=== PATIENT | female | born 1965 | race Caucasian/White ===

== ENCOUNTER 2018-04-09 12:14 | Emergency (ER) | payer OTHER ==
[2018-04-09] MEDS ORDERED: Ketorolac Tromethamine 30 MG/ML VIAL ONE (13:15)
== END 2018-04-09 14:07 | disposition home or self-care (01) ==
LOC: ERS 12:14
DX: J18.9 Pneumonia, unspecified organism (principal); B02.9 Zoster without complications; F17.210 Nicotine dependence, cigarettes, uncomplicated
CPT/HCPCS: 99284; J1885

== ENCOUNTER 2020-08-13 13:11 | Outpatient (CLI) | payer OTHER | END 2020-08-13 13:12 | disposition home or self-care (01) | LOC: TBSIIMAG 13:11 | PROVIDERS: ATTEND Surgery | DX: M54.2 Cervicalgia (principal); M25.519 Pain in unspecified shoulder; M47.812 Spondylosis without myelopathy or radiculopathy, cervical region; M50.322 Other cervical disc degeneration at C5-C6 level | CPT/HCPCS: 72052; 72141 ==

== ENCOUNTER 2023-01-05 08:46 | Outpatient (CLI) | payer OTHER | END 2023-01-05 08:47 | disposition home or self-care (01) | LOC: BICMRI 08:46 | PROVIDERS: ATTEND Neurological Surgery | DX: M47.12 Other spondylosis with myelopathy, cervical region (principal); M47.811 Spondylosis without myelopathy or radiculopathy, occipito-atlanto-axial region; M48.02 Spinal stenosis, cervical region; M50.01 Cervical disc disorder with myelopathy, high cervical region; M25.78 Osteophyte, vertebrae; M50.021 Cervical disc disorder at C4-C5 level with myelopathy; M50.022 Cervical disc disorder at C5-C6 level with myelopathy; M50.023 Cervical disc disorder at C6-C7 level with myelopathy; M47.813 Spondylosis without myelopathy or radiculopathy, cervicothoracic region | CPT/HCPCS: 72050; 72141 ==

== ENCOUNTER 2024-12-19 18:50 | Inpatient (IN) | payer OTHER ==
[~2024-12-19 18:50] MED LIST: Iopamidol 370 76% 100 ML VIAL ONE
[2024-12-19 20:00] LABS: #Basophils Less than 0.03 10x3/uL (0.0-0.2); #Eosinophils Less than 0.03 10x3/uL (0.0-0.7); #Monocytes 1.09 10x3/uL (0.11-0.59); #Neutrophils 13.78 10x3/uL (1.40-6.50); %Basophils 0.1 % (0.0-1.0); %Eosinophils 0.0 % (0.0-10.0); %Lymphocytes 3.4 % (21.0-51.0); %Monocytes 7.0 % (0.0-10.0); %Neutrophils 88.7 % (42.0-75.0); Hematocrit 37.2 % (36.0-47.0); Hemoglobin 11.8 g/dL (12.0-16.0); Mean Corpuscular Hemoglobin 26.9 pg (27.0-31.0); Mean Corpuscular Volume 84.9 fL (78.0-98.0); Platelet Count 307 10x3/uL (130-400); Red Blood Cell (RBC) Count 4.38 mill/uL (4.20-5.40); White Blood Cell (WBC) Count 15.54 10x3/uL (4.8-10.8)
[2024-12-19 20:23] LABS: ALT (SGPT) 225 U/L (Less than 34); AST (SGOT) 279 U/L (11-34); Albumin 2.9 g/dL (3.1-4.5); Alkaline Phosphatase 502 U/L (40-110); Anion Gap 13 mmol/L (10-20); BUN (Urea Nitrogen) 29 mg/dL (9.8-20.1); Bilirubin, Total 2.0 mg/dL (0.3-1.2); Calc. Creatinine Clearance 0 mL/min (70-130); Calcium 10.7 mg/dL (7.8-10.44); Carbon Dioxide 29 mmol/L (22-29); Chloride 89 mmol/L (98-107); Globulin 4.5 g/dL (2.4-3.5); Glucose 86 mg/dL (70-105); Lipase 296 U/L (8-78); Potassium 4.9 mmol/L (3.5-5.1); Sodium 126 mmol/L (136-145)
[2024-12-19] MEDS ORDERED: Acetaminophen/Codeine 30-300mg Tablet PO PRN (22:39)
[2024-12-19] MEDS ORDERED: Melatonin 3 MG TAB PO PRN (22:39)
[2024-12-19] MEDS ORDERED: Senokot S 8.6-50 MG TAB PO PRN (22:39)
[2024-12-19] MEDS ORDERED: Acetaminophen 325 MG TAB PO PRN (22:39)
[2024-12-19] MEDS ORDERED: Communication Order-Pharmacy FS SCH (22:39)
[2024-12-19] MEDS ORDERED: Electrolyte Replacement Protocol 1 EACH FS SCH (22:45)
[2024-12-19] MEDS ORDERED: Ciprofloxacin Lactate/D5W 400 MG in Premix 1 BAG IVPB SCH (23:05)
[2024-12-19] MEDS ORDERED: HYDROcodone/Acetaminophen 5/325 mg Tablet ONE (23:26)
[2024-12-20 00:02] VITALS: BMI 23.8
[2024-12-20] MEDS: Lactulose 20 GM (30 mL) UDCUP PO SCH ×2 (00:43→09:42)
[2024-12-20] MEDS: Albumin 25% 25 GM (100 mL) BOT IVPB SCH (00:44)
[2024-12-20] MEDS: HYDROcodone/Acetaminophen 5/325 mg Tablet PO PRN (01:20)
[2024-12-20 05:13] LABS: #Basophils Less than 0.03 10x3/uL (0.0-0.2); #Eosinophils Less than 0.03 10x3/uL (0.0-0.7); #Monocytes 1.99 10x3/uL (0.11-0.59); #Neutrophils 12.77 10x3/uL (1.40-6.50); %Basophils 0.1 % (0.0-1.0); %Eosinophils 0.0 % (0.0-10.0); %Lymphocytes 5.9 % (21.0-51.0); %Monocytes 12.6 % (0.0-10.0); %Neutrophils 80.6 % (42.0-75.0); Hematocrit 34.9 % (36.0-47.0); Hemoglobin 11.2 g/dL (12.0-16.0); Mean Corpuscular Hemoglobin 27.3 pg (27.0-31.0); Mean Corpuscular Volume 85.1 fL (78.0-98.0); Platelet Count 225 10x3/uL (130-400); Red Blood Cell (RBC) Count 4.10 mill/uL (4.20-5.40); White Blood Cell (WBC) Count 15.84 10x3/uL (4.8-10.8)
[2024-12-20 05:31] LABS: ALT (SGPT) 228 U/L (Less than 34); AST (SGOT) 301 U/L (11-34); Albumin 2.9 g/dL (3.1-4.5); Alkaline Phosphatase 420 U/L (40-110); Anion Gap 15 mmol/L (10-20); BUN (Urea Nitrogen) 28 mg/dL (9.8-20.1); Bilirubin, Total 1.8 mg/dL (0.3-1.2); Calc. Creatinine Clearance 75 mL/min (70-130); Calcium 10.1 mg/dL (7.8-10.44); Carbon Dioxide 29 mmol/L (22-29); Chloride 89 mmol/L (98-107); Globulin 3.4 g/dL (2.4-3.5); Glucose 78 mg/dL (70-105); Lipase 156 U/L (8-78); Potassium 4.7 mmol/L (3.5-5.1); Sodium 128 mmol/L (136-145)
[2024-12-20 05:32] LABS: Bilirubin, Direct 1.1 mg/dL (0.1-0.3); Bilirubin, Total 1.8 mg/dL (0.3-1.2)
[2024-12-20] MEDS: Famotidine 20 MG TAB PO SCH (09:42)
[2024-12-20] MEDS: Famotidine/PF 20 mg/2ml Vial SLOW IVP SCH (10:27)
[2024-12-20] MEDS: Ondansetron PF 4 MG/2 ML Vial IVP PRN (10:30)
[2024-12-20] MEDS: Enoxaparin 40 MG (0.4 mL) SYRINGE SC SCH (10:44)
[2024-12-20 10:50] LABS: INR-International Normal Ratio 1.2; PTT 25.7 sec (22.9-36.1); Prothrombin Time 15.5 sec (12.0-14.7)
[2024-12-20] MEDS ORDERED: Sodium Bicarbonate 2.5 MEQ/5 ML SDV ONE (13:38)
[2024-12-20] MEDS ORDERED: Lidocaine 1% w/Epinephrine 1:100K 20 ML VIAL ONE ×2 (13:38→15:06)
[2024-12-20] MEDS ORDERED: diphenhydrAMINE 50 MG/ML VIAL ONE (14:15)
[2024-12-20] MEDS ORDERED: Ondansetron PF 4 MG/2 ML Vial ONE (14:15)
[2024-12-21 05:11] LABS: #Basophils 0.03 10x3/uL (0.0-0.2); #Eosinophils Less than 0.03 10x3/uL (0.0-0.7); #Monocytes 2.51 10x3/uL (0.11-0.59); #Neutrophils 16.61 10x3/uL (1.40-6.50); %Basophils 0.1 % (0.0-1.0); %Eosinophils 0.0 % (0.0-10.0); %Lymphocytes 5.2 % (21.0-51.0); %Monocytes 12.3 % (0.0-10.0); %Neutrophils 81.6 % (42.0-75.0); Hematocrit 29.8 % (36.0-47.0); Hemoglobin 9.6 g/dL (12.0-16.0); Mean Corpuscular Hemoglobin 27.8 pg (27.0-31.0); Mean Corpuscular Volume 86.4 fL (78.0-98.0); Platelet Count 263 10x3/uL (130-400); Red Blood Cell (RBC) Count 3.45 mill/uL (4.20-5.40); White Blood Cell (WBC) Count 20.40 10x3/uL (4.8-10.8)
[2024-12-21 05:25] LABS: Anion Gap 16 mmol/L (10-20); BUN (Urea Nitrogen) 25 mg/dL (9.8-20.1); Calc. Creatinine Clearance 83 mL/min (70-130); Calcium 9.6 mg/dL (7.8-10.44); Carbon Dioxide 28 mmol/L (22-29); Chloride 94 mmol/L (98-107); Glucose 69 mg/dL (70-105); Magnesium 2.1 mg/dL (1.6-2.6); Potassium 3.7 mmol/L (3.5-5.1); Sodium 134 mmol/L (136-145)
[2024-12-21 07:55] VITALS: BP 109/74; TEMP 98.7
== END 2024-12-21 11:30 | DRG 436 ==
LOC: ERS 18:50 → SURG B 22:39
PROVIDERS: ADMIT Family Medicine; ATTEND Internal Medicine
PROC: 30233J1 Transfusion of Nonautologous Serum Albumin into Peripheral Vein, Percutaneous Approach (ICD-10-PCS; 2024-12-19)
PROC: 0W9G30Z Drainage of Peritoneal Cavity with Drainage Device, Percutaneous Approach (ICD-10-PCS; principal; 2024-12-20)
DX: C22.0 Liver cell carcinoma (principal); E87.1 Hypo-osmolality and hyponatremia; G89.3 Neoplasm related pain (acute) (chronic); K70.31 Alcoholic cirrhosis of liver with ascites; Z66 Do not resuscitate; Z79.899 Other long term (current) drug therapy; J45.20 Mild intermittent asthma, uncomplicated; E83.52 Hypercalcemia; Z51.5 Encounter for palliative care; F41.9 Anxiety disorder, unspecified
CPT/HCPCS: 36415; 49083; 49407; 74177; 80048; 80053; 82247; 83605; 83690; 83735; 85025; 85610; 85730; 87040; 96374; C1769; J1200; J1308; J2185; J2250; J2270; J2405; J3010; J7030; P9047; Q0162; Q9967